=== PATIENT | male | born 1985 | race Caucasian/White ===

== ENCOUNTER 2017-01-09 18:09 | Emergency (ER) | payer OTHER ==
[~2017-01-09] VITALS: Ht 177.8 cm; Wt 92.1 kg
[2017-01-09] MEDS ORDERED: FLUORESCEIN (FLUOR-I-STRIPS) 1 MG STRIP OS ONE (18:20)
[2017-01-09] MEDS ORDERED: EYE WASH 120 ML BTL OS ONE (18:20)
[2017-01-09] MEDS ORDERED: TETRACAINE 0.5% OPHTHALMIC SOLUTION 4 ML BTL OS ONE (18:20)
[2017-01-09 18:52] VITALS: BP 164/107
== END 2017-01-09 18:53 | disposition home or self-care (01) ==
LOC: ED 18:15
DX: S05.01XA Injury of conjunctiva and corneal abrasion without foreign body, right eye, initial encounter (principal); W20.8XXA Other cause of strike by thrown, projected or falling object, initial encounter; Y93.89 Activity, other specified
CPT/HCPCS: 99283